=== PATIENT | male | born 1985 | race Hispanic/Latino ===

== ENCOUNTER 2016-08-10 01:09 | Emergency (ER) | payer OTHER ==
[2016-08-10] MEDS ORDERED: ONDANSETRON 4MG/2ML VIAL (J2405) As Ordered ONE (02:20)
[2016-08-10 02:24] LABS: EOS # 0.1 K/mm3 (0.0-0.50); EOS % 0.5 % (0.0-3.0); LARGE UNSTAINED CELL # 0.1 K/mm3 (0.0-0.4); LARGE UNSTAINED CELL % 0.6 % (0.0-4.0); LYMPH # 0.8 K/mm3 (1.5-4.5); LYMPH % 6.7 % (24.0-44.0); MEAN CORPUSCULAR HEMOGLOBIN 30.3 pg (27.0-33.0); MEAN CORPUSCULAR HGB CONC 34.1 g/dl (32.0-36.5); MEAN CORPUSCULAR VOLUME 88.8 fl (80.0-96.0); MONO # 0.4 K/mm3 (0.0-0.8); MONO % 3.4 % (0.0-5.0); NEUTROPHILS # 10.4 K/mm3 (1.8-7.7); NEUTROPHILS % 88.8 % (36.0-66.0); PLATELET COUNT, AUTOMATED 209 k/mm3 (150-450); RED CELL DISTRIBUTION WIDTH 12.2 % (11.5-14.5); WHITE BLOOD COUNT 11.7 K/mm3 (4.0-10.0)
[2016-08-10 02:25] LABS: VENOUS BASE EXCESS 0.7 (-2.0-2.0); VENOUS O2 SATURATION 90.1 % (60.0-80.0); VENOUS PARTIAL PRESSURE CO2 18.8 mmHg (38.0-50.0); VENOUS PARTIAL PRESSURE O2 45.6 mmHg (30.0-50.0); VENOUS STANDARD HCO3 24.9 MEQ/L; VENOUS TOTAL CO2 19.5 MEQ/L (24.0-28.0)
[2016-08-10 02:42] LABS: ALBUMIN 4.6 GM/DL (3.2-5.2); ALBUMIN/GLOBULIN RATIO 1.53 (1.00-1.93); BILIRUBIN,DIRECT 0.3 MG/DL (0.0-0.2); BILIRUBIN,TOTAL 1.1 MG/DL (0.2-1.0); CALCIUM LEVEL 9.4 MG/DL (8.5-10.1); CREATININE FOR GFR 1.56 MG/DL (0.70-1.30); GLOMERULAR FILTRATION RATE 55.9 (>60); POTASSIUM SERUM 3.7 MEQ/L (3.5-5.1); TOTAL PROTEIN 7.6 GM/DL (6.4-8.2)
[2016-08-10] MEDS ORDERED: ISOVUE-370 76% 100ML VIAL (Q9967) As Ordered ONE (04:08)
[2016-08-10] MEDS ORDERED: ACETAMINOPHEN TAB 650MG DOSE (2X325MG) As Ordered ONE (04:19)
--- NOTE | 2016-08-10 04:40 | REPUSA ---
CLINICAL HISTORY: Abdominal pain. TECHNIQUE: Multiple axial, sagittal and coronal CT images were obtained through the abdomen and pelvi s after administration of intravenous contrast material. COMMENTS: Mild diffuse thickening of the wall of the colon. Fluid filled bowels. The liver is of uniform attenuation without mass or defect. There is no intra or extrahepatic biliary ductal dilatation. The spleen is normal. The gallbladder is within normal limits. The pancreas is of normal contour and attenuation characteristics. There is no evidence of adrenal mass. Both kidneys demonstrate prompt and equal nephrograms. The kidneys are normal in size, shape and conf iguration. There is no evidence of renal or ureteral mass. No renal or ureteral calculi are identifie d. There is no hydroureter or hydronephrosis. No evidence for appendicitis. There is no bowel wall thickening. No evidence for small or large almaz l obstruction. There is no evidence of abdominal ascites or lymphadenopathy. There is no evidence of intrinsic or extrinsic bladder mass. There is no pelvic ascites or lymphadeno destinee. Images of the lung bases show no evidence of pleural or parenchymal mass. There are no pleural effusi ons. The bony structures are free of lytic or blastic lesions. IMPRESSION: Enterocolitis. No perforation or abscess formation. Thank you for your kind referral of this patient.
--- NOTE | 2016-08-10 07:24 | EDDOCDS ---
Physician Documentation [facility] Name: Darwin Mei Age: 31 yrs Sex: Male : 1985 Arrival Date: 08/10/2016 Time: 01:09 Bed 12 Private MD: Disposition: 08/10/16 07:03 Discharged to Home/Self Care. Impression: Noninfective gastroenteritis and colitis, unspecified. - Condition is Stable. - Discharge Instructions: Food Choices to Help Relieve Diarrhea, Adult, Dehydration, Adult, Viral Gastroenteritis, Viral Gastroenteritis, [id number], Dehydration, Adult, [id number]. - Prescriptions for Zofran 4 mg Oral Tablet - take 1 tablet by ORAL route 4 times per day As needed; 10 tablet. - Medication Reconciliation, Local Pharmacy Hours form. - Follow up: Andrés Gray [facility]; When: 2 - 3 days; Reason: Continuance of care. - Problem is an acute exacerbation. - Symptoms have improved. Historical: - Allergies: No known drug Allergies; - Home Meds: 1. none - PMHx: none; - Social history: Smoking status: Patient states was never smoker of tobacco. Patient/guardian denies using alcohol, street drugs, No barriers to communication noted, The patient speaks fluent [place]. - Family history: Not pertinent. - : The pt / caregiver states he / she is not on anticoagulants. Home medication list is obtained from the patient. - Exposure Risk Screening:: None identified. Vital Signs: 08/10 01:18 BP 122 / 67; Pulse 104; Resp 18; Temp 97.5(O); Pulse Ox 100% on R/A; Weight 86.18 kg / jp6 189.99 lbs; Height 5 ft. 9 in. (175.26 cm); Pain 9/10; 02:33 Pulse 82 MON; Pulse Ox 94% ; jp6 02:33 BP 126 / 60; Pulse 82; Resp 16; Pulse Ox 97% on R/A; Pain 5/10; jp6 03:36 BP 113 / 58 (auto/); jp6 03:36 Pulse 82 MON; Pulse Ox 94% ; jp6 04:25 Temp 100.8(O); jp6 04:36 BP 121 / 66 (auto/); jp6 04:36 Pulse 84 MON; Pulse Ox 98% ; jp6 04:44 Pulse 78 MON; Pulse Ox 98% ; jp6 05:26 Pulse 80 MON; Pulse Ox 94% ; jp6 05:26 Temp 99.6(O); jp6 05:36 BP 114 / 54 (auto/); jp6 05:36 Pulse 78 MON; Pulse Ox 93% ; jp6 07:21 BP 108 / 52; Pulse 78; Resp 16; Temp 97.8; Pulse Ox 99% on R/A; Pain 2/10; dls 01:18 Body Mass Index 28.06 (86.18 kg, 175.26 cm) jp6 MDM: 01:26 NS 0.9% 1000 ml IV at bolus once ordered. js15 02:15 Ondansetron 4 mg IVP once ordered. mm11 02:15 -Blood Culture (Adults Only), peripheral from different site, or from device/port/PICC mm11 etc. if present ordered. 02:15 IV Saline Lock ordered. mm11 02:15 Undress patient appropriately for examination ordered. mm11 02:16 -Blood Culture Ordered. EDMS 02:16 Amylase Ordered. EDMS 02:16 Basic Metabolic Profile Ordered. EDMS 02:16 CBC with Diff Ordered. EDMS 02:16 Lipase Ordered. EDMS 02:16 Liver Profile Ordered. EDMS 02:17 NOTHING BY MOUTH+DIET ordered. EDMS 02:17 Venous Blood Gas (large pea green tube on ice) Ordered. EDMS 02:17 Lactic Acid (Garzon tube on ice) Ordered. EDMS 02:23 -Blood Culture (Adults Only), peripheral from different site, or from device/port/PICC kb5 etc. if present complete. 02:27 BLOOD CULTURES Ordered. EDMS 02:55 CREATINE PHOSPHOKINASE Ordered. EDMS 03:11 Financial registration complete. [facility] 03:16 Basic Metabolic Profile Reviewed. mm11 03:16 CBC with Diff Reviewed. mm11 03:16 Liver Profile Reviewed. mm11 03:16 Venous Blood Gas (large pea green tube on ice) Reviewed. mm11 03:16 Lactic Acid (Garzon tube on ice) Reviewed. mm11 03:16 CREATINE PHOSPHOKINASE Reviewed. mm11 03:16 Amylase Reviewed. mm11 03:16 Lipase Reviewed. mm11 03:17 NS 0.9% (Sepsis- hypotension or lactate >4mmol/L, 30ml/kg) 2000 ml IV at bolus once; mm11 Give in 500mL aliquots, assess for rales after each, inform provider ordered. 03:17 CT ABD & PELVIS: IV Contrast Only Ordered. EDVA 04:17 [facility] Payment Agreement was scanned into [employer] and attached to record. [facility] 04:18 Acetaminophen Tablet 650 mg PO once ordered. mm11 04:19 -Influenza A&B Rapid Antigen - Nose Ordered. EDMS 06:18 -Influenza A&B Rapid Antigen - Nose Reviewed. mm11 06:18 CT ABD & PELVIS: IV Contrast Only Reviewed. mm11 Administered Medications: 01:27 Drug: NS 0.9% 1000 ml [sodium chloride 0.9 % intravenous solution] Route: IV; Rate: js15 bolus; Site: left antecubital; 03:25 Follow up: IV Status: Completed infusion; IV Intake: 1000ml jp6 02:30 Drug: Ondansetron 4 mg [ondansetron HCl 2 mg/mL intravenous solution (2 mL)] Route: jp6 IVP; Site: left antecubital; 03:26 Follow up: Response: Nausea is resolved jp6 03:23 Drug: NS 0.9% (Sepsis- hypotension or lactate >4mmol/L, 30ml/kg) 2000 ml [sodium jp6 chloride 0.9 % intravenous solution] Route: IV; Rate: bolus; Site: left antecubital; 05:26 Follow up: IV Status: Completed infusion; IV Intake: 2000ml jp6 04:25 Drug: Acetaminophen 650 mg [acetaminophen 325 mg tablet (2 tabs)] Route: PO; jp6 05:26 Follow up: Response: Temperature is decreased jp6 Signatures: Dispatcher [employer] EDVA Anila Valle, Esteban Long RN, SUPERVISOR [employer] SUPERVISOR [employer] kb5 John Branham DO DO mm11 Makayla Tinsley [facility] Betty RendonRN SOTO js15 Livier Dugan,RN RN jp6 The chart was reviewed and I authenticate all verbal orders and agree with the evaluation and treatment provided.Corrections: (The following items were deleted from the chart) 02:55 02:48 CREATINE PHOSPHOKINASE+LAB ordered. EDVA EDMS Attachments: 04:17 [facility] Payment Agreement [facility] MTDD
--- NOTE | 2016-08-10 07:24 | EDDOCDS ---
Nurse's Notes [facility] Name: Darwin Mei Age: 31 yrs Sex: Male : 1985 Arrival Date: 08/10/2016 Time: 01:09 Bed 12 Private MD: Diagnosis: Noninfective gastroenteritis and colitis, unspecified Presentation: 08/10 01:15 Presenting complaint: Patient states: abdominal pain states: states ate steak and jp6 shrimp then became ill-other family members ate the same with no problems. EMS states: states 2 hrs ago pt started with severe abdominal cramping and some bloody stools,almost passed out on toilet. Risk factors: the patient reports not having a history of previous torsion. Adult Sepsis Screening: The patient does not have new or worsening altered mentation. Patient's respiratory rate is less than 22. Systolic blood pressure is greater than 100. Patient has a qSOFA score of 0- Negative Sepsis Screen. Suicide/Homicide risk assessment- the patient denies having any suicidal and/or homicidal ideations and does not present with any other emotional, behavioral or mental health complaints. 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 Transition of care: patient was not received from another setting of care. 01:15 Acuity: TIA Level 3 jp6 01:15 Method Of Arrival: Ambulance jp6 Triage Assessment: 01:18 General: Appears distressed, ill, uncomfortable, well developed, well nourished, jp6 Behavior is appropriate for age, cooperative. Pain: Location: abdomen Pain currently is 9 out of 10 on a pain scale. Pain radiates to epigastric and abdomen Quality of pain is described as crampy. Pt Declines HIV testing. The patient is triaged at the bedside. See Assessment in Nurses Notes section of ED record. Neurological: Level of Consciousness is awake, alert, Oriented to person, place, time. EENT: No deficits noted. Cardiovascular: Capillary refill < 3 seconds Heart tones S1 S2 present. Respiratory: Airway is patent Respiratory effort is even, unlabored, Respiratory pattern is regular, symmetrical, Breath sounds are clear bilaterally. GI: Abdomen is flat, Bowel sounds hypoactive in right upper quadrant, left upper quadrant, right lower quadrant and left lower quadrant Abd is tender to palpation X 4 quads. Abd is rigid Guarding noted. : No deficits noted. Derm: Skin is intact, Skin is dry, Skin is pale, Skin temperature is warm. Musculoskeletal: No deficits noted. Historical: - Allergies: No known drug Allergies; - Home Meds: 1. none - PMHx: none; - Social history: Smoking status: Patient states was never smoker of tobacco. Patient/guardian denies using alcohol, street drugs, No barriers to communication noted, The patient speaks fluent Sinhala. - Family history: Not pertinent. - : The pt / caregiver states he / she is not on anticoagulants. Home medication list is obtained from the patient. - Exposure Risk Screening:: None identified. Screenin:22 Screening information is obtained from the patient. Fall risk: No risks identified. jp6 Assistance ADL's: requires no assistance with activities of daily living. Abuse/DV Screen: The patient / caregiver reports he/she is: not in a situation that causes fear, pain or injury. Nutritional screening: No deficits noted. Advance Directives: Currently, there is no health care proxy. There is no active DNR order. There is no living will. home support is adequate. Assessment: 01:22 General: see triage assessment. jp6 02:34 Reassessment: Patient appears in no apparent distress at this time. Patient states jp6 symptoms have not improved. General: Appears in no apparent distress, ill, Behavior is appropriate for age, cooperative. Pain: Location: abdomen Pain currently is 5 out of 10 on a pain scale. Neurological: No deficits noted. EENT: No deficits noted. Cardiovascular: No deficits noted. Respiratory: Airway is patent Respiratory effort is even, unlabored, Respiratory pattern is regular, symmetrical. GI: Abdomen is flat, non- distended. : No deficits noted. Derm: Skin is dry, Skin is pale, Skin temperature is warm. 03:24 Reassessment: Patient appears in no apparent distress at this time. Patient states jp6 symptoms have improved. Pain: Denies pain. Respiratory: Airway is patent Respiratory effort is even, unlabored, Respiratory pattern is regular, symmetrical. GI: Reports feeling better. Derm: Skin is pink, warm & dry. 04:44 Reassessment: Patient appears in no apparent distress at this time. Patient denies pain jp6 at this time. Patient states feeling better. General: Appears in no apparent distress, comfortable, Behavior is appropriate for age, cooperative, pleasant. Pain: Denies pain. Pain: Denies pain. Neurological: No deficits noted. EENT: No deficits noted. Cardiovascular: No deficits noted. Respiratory: Airway is patent Respiratory effort is even, unlabored, Respiratory pattern is regular, symmetrical, Breath sounds are clear bilaterally. GI: Abdomen is flat, non- distended Reports feeling better at this time. : No deficits noted. Derm: Skin is pink, warm & dry. Musculoskeletal: No deficits noted. 05:27 Reassessment: Patient appears in no apparent distress at this time. Patient states jp6 symptoms have improved. General: Appears comfortable. Pain: Denies pain. Neurological: No deficits noted. EENT: No deficits noted. Cardiovascular: No deficits noted. Respiratory: Airway is patent Respiratory effort is even, unlabored, Respiratory pattern is regular, symmetrical. GI: Abdomen is flat, non- distended. : No deficits noted. Derm: No deficits noted. Musculoskeletal: No deficits noted. 06:23 Reassessment: Patient appears in no apparent distress at this time. Patient states jp6 symptoms have improved. General: Appears in no apparent distress, comfortable, Behavior is cooperative. Respiratory: Airway is patent Respiratory effort is even, unlabored, Respiratory pattern is regular, symmetrical, Sputum is. GI: Reports feeling much better. Derm: Skin is pink, warm & dry. Vital Signs: 01:18 BP 122 / 67; Pulse 104; Resp 18; Temp 97.5(O); Pulse Ox 100% on R/A; Weight 86.18 kg; jp6 Height 5 ft. 9 in. (175.26 cm); Pain 9/10; 02:33 Pulse 82 MON; Pulse Ox 94% ; jp6 02:33 BP 126 / 60; Pulse 82; Resp 16; Pulse Ox 97% on R/A; Pain 5/10; jp6 03:36 BP 113 / 58 (auto/); jp6 03:36 Pulse 82 MON; Pulse Ox 94% ; jp6 04:25 Temp 100.8(O); jp6 04:36 BP 121 / 66 (auto/); jp6 04:36 Pulse 84 MON; Pulse Ox 98% ; jp6 04:44 Pulse 78 MON; Pulse Ox 98% ; jp6 05:26 Pulse 80 MON; Pulse Ox 94% ; jp6 05:26 Temp 99.6(O); jp6 05:36 BP 114 / 54 (auto/); jp6 05:36 Pulse 78 MON; Pulse Ox 93% ; jp6 07:21 BP 108 / 52; Pulse 78; Resp 16; Temp 97.8; Pulse Ox 99% on R/A; Pain 2/10; dls 01:18 Body Mass Index 28.06 (86.18 kg, 175.26 cm) jp6 Vitals: 01:18 Log In Time N/A - ambulance arrival. jp6 ED Course: 01:10 Patient visited by Esteban Calderon PCA. kb5 01:10 Patient moved to Waiting kb5 01:12 Patient moved to 12 kb5 01:13 Patient name changed from Darwin\S\\S\Zambranagonzalez\S\ to Darwin\S\ \S\Mansoorranjenszalez. EDMS 01:15 Livier Dugan,RN is Primary Nurse. jp6 01:15 Patient visited by Livier Dugan RN. jp6 01:18 Triage Initiated jp6 01:22 Maintain field IV. Dressing intact. Good blood return noted. Site clean & dry. Gauge & jp6 site: 18g left ac. 01:44 John Branham DO is Attending Physician. mm11 01:44 Patient visited by John Branham DO. mm11 02:14 Patient visited by John Branham DO. mm11 02:30 BLOOD CULTURES Sent. jp6 02:33 The patient / caregiver is instructed regarding the plan of care and ED course. Cardiac jp6 monitor on. Pulse ox on. NIBP on. 02:33 No procedures done that require assistance. Labs/Blood culture drawn. jp6 02:48 Notified attending ED physician of Critical lab value. sls1 03:16 Patient visited by John Branham DO. mm11 04:17 [facility] Payment Agreement was scanned into Apptimize and attached to record. [facility] 04:24 Patient visited by Livier Dugan RN. jp6 04:24 -Influenza A&B Rapid Antigen - Nose Sent. jp6 05:02 CT ABD & PELVIS: IV Contrast Only Returned. EDMS 05:26 Patient visited by Livier Dugan RN. jp6 06:18 Patient visited by John Branham DO. mm11 07:02 Patient visited by John Branham DO. mm11 07:03 Andrés Gray [facility] is Referral Physician. mm11 07:20 Report received from Livier VALERA. dls 07:21 Discontinued IV lock intact, bleeding controlled, pressure dressing applied, No dls redness/swelling at site. Administered Medications: 01:27 Drug: NS 0.9% 1000 ml [sodium chloride 0.9 % intravenous solution] Route: IV; Rate: js15 bolus; Site: left antecubital; 03:25 Follow up: IV Status: Completed infusion; IV Intake: 1000ml jp6 02:30 Drug: Ondansetron 4 mg [ondansetron HCl 2 mg/mL intravenous solution (2 mL)] Route: jp6 IVP; Site: left antecubital; 03:26 Follow up: Response: Nausea is resolved jp6 03:23 Drug: NS 0.9% (Sepsis- hypotension or lactate >4mmol/L, 30ml/kg) 2000 ml [sodium jp6 chloride 0.9 % intravenous solution] Route: IV; Rate: bolus; Site: left antecubital; 05:26 Follow up: IV Status: Completed infusion; IV Intake: 2000ml jp6 04:25 Drug: Acetaminophen 650 mg [acetaminophen 325 mg tablet (2 tabs)] Route: PO; jp6 05:26 Follow up: Response: Temperature is decreased jp6 Intake: 03:25 IV: 1000.00ml; Total: 1000.00ml. jp6 04:44 IV: 2000.00ml; Total: 3000.00ml. jp6 05:26 IV: 2000.00ml; Total: 5000.00ml. jp6 Output: 04:44 Urine: 350.00ml (Voided); Total: 350.00ml. jp6 Order Results: Lab Order: Amylase; SPEC'M 08/10/16 01:23 Test: AMYLASE; Value: 86; Range: 25-115; Units: U/L; Status: F Lab Order: Basic Metabolic Profile; SPEC'M 08/10/16 01:23 Test: GLUCOSE, FASTING; Value: 134; Range: 70-105; Abnormal: Above high normal; Units: MG/DL; Status: F Test: BLOOD UREA NITROGEN; Value: 22; Range: 7-18; Abnormal: Above high normal; Units: MG/DL; Status: F Test: CREATININE FOR GFR; Value: 1.56; Range: 0.70-1.30; Abnormal: Above high normal; Units: MG/DL; Status: F Test: GLOMERULAR FILTRATION RATE; Value: 55.9; Range: >60; Abnormal: Below low normal; Status: F Test: SODIUM LEVEL; Value: 141; Range: 136-145; Units: MEQ/L; Status: F Test: POTASSIUM SERUM; Value: 3.7; Range: 3.5-5.1; Units: MEQ/L; Status: F Test: CHLORIDE LEVEL; Value: 105; Range: 98-107; Units: MEQ/L; Status: F Test: CARBON DIOXIDE LEVEL; Value: 20; Range: 21-32; Abnormal: Below low normal; Units: MEQ/L; Status: F Test: ANION GAP; Value: 16; Range: 8-16; Units: MEQ/L; Status: F Test: CALCIUM LEVEL; Value: 9.4; Range: 8.5-10.1; Units: MG/DL; Status: F Test Note: ; Units are mL/min/1.73 m2 Chronic Kidney Disease Staging per NKF: Stage I & II GFR >=60 Normal to Mildly Decreased Stage III GFR 30-59 Moderately Decreased Stage IV GFR 15-29 Severely Decreased Stage V GFR <15 Very Little GFR Left ESRD GFR <15 on DIRECTOR OF CURRICULUM Lab Order: CBC with Diff; SPEC'M 08/10/16 01:23 Test: WHITE BLOOD COUNT; Value: 11.7; Range: 4.0-10.0; Abnormal: Above high normal; Units: K/mm3; Status: F Test: RED BLOOD COUNT; Value: 5.02; Range: 4.30-6.10; Units: M/mm3; Status: F Test: HEMOGLOBIN; Value: 15.2; Range: 14.0-18.0; Units: g/dl; Status: F Test: HEMATOCRIT; Value: 44.6; Range: 42.0-52.0; Units: %; Status: F Test: MEAN CORPUSCULAR VOLUME; Value: 88.8; Range: 80.0-96.0; Units: fl; Status: F Test: MEAN CORPUSCULAR HEMOGLOBIN; Value: 30.3; Range: 27.0-33.0; Units: pg; Status: F Test: MEAN CORPUSCULAR HGB CONC; Value: 34.1; Range: 32.0-36.5; Units: g/dl; Status: F Test: RED CELL DISTRIBUTION WIDTH; Value: 12.2; Range: 11.5-14.5; Units: %; Status: F Test: PLATELET COUNT, AUTOMATED; Value: 209; Range: 150-450; Units: k/mm3; Status: F Test: NEUTROPHILS %; Value: 88.8; Range: 36.0-66.0; Abnormal: Above high normal; Units: %; Status: F Test: LYMPH %; Value: 6.7; Range: 24.0-44.0; Abnormal: Below low normal; Units: %; Status: F Test: MONO %; Value: 3.4; Range: 0.0-5.0; Units: %; Status: F Test: EOS %; Value: 0.5; Range: 0.0-3.0; Units: %; Status: F Test: BASO %; Value: 0.0; Range: 0.0-1.0; Units: %; Status: F Test: LARGE UNSTAINED CELL %; Value: 0.6; Range: 0.0-4.0; Units: %; Status: F Test: NEUTROPHILS #; Value: 10.4; Range: 1.8-7.7; Abnormal: Above high normal; Units: K/mm3; Status: F Test: LYMPH #; Value: 0.8; Range: 1.5-4.5; Abnormal: Below low normal; Units: K/mm3; Status: F Test: MONO #; Value: 0.4; Range: 0.0-0.8; Units: K/mm3; Status: F Test: EOS #; Value: 0.1; Range: 0.0-0.50; Units: K/mm3; Status: F Test: BASO #; Value: 0.0; Range: 0.0-0.2; Units: K/mm3; Status: F Test: LARGE UNSTAINED CELL #; Value: 0.1; Range: 0.0-0.4; Units: K/mm3; Status: F Lab Order: Lipase; SPEC'M 08/10/16 01:23 Test: LIPASE; Value: 144; Range: 73-393; Units: U/L; Status: F Lab Order: Liver Profile; SPEC'M 08/10/16 01:23 Test: AST/SGOT; Value: 33; Range: 15-37; Units: U/L; Status: F Test: ALT/SGPT; Value: 34; Range: 12-78; Units: U/L; Status: F Test: ALKALINE PHOSPHATASE; Value: 65; Range: 45-117; Units: U/L; Status: F Test: BILIRUBIN,TOTAL; Value: 1.1; Range: 0.2-1.0; Abnormal: Above high normal; Units: MG/DL; Status: F Test: BILIRUBIN,DIRECT; Value: 0.3; Range: 0.0-0.2; Abnormal: Above high normal; Units: MG/DL; Status: F Test: TOTAL PROTEIN; Value: 7.6; Range: 6.4-8.2; Units: GM/DL; Status: F Test: ALBUMIN; Value: 4.6; Range: 3.2-5.2; Units: GM/DL; Status: F Test: ALBUMIN/GLOBULIN RATIO; Value: 1.53; Range: 1.00-1.93; Status: F Lab Order: Venous Blood Gas (large pea green tube on ice); SPEC'M 08/10/16 01:23 Test: VENOUS PH; Value: 7.621; Range: 7.330-7.430; Abnormal: Above upper panic limits; Units: UNITS; Status: F Test: VENOUS PARTIAL PRESSURE CO2; Value: 18.8; Range: 38.0-50.0; Abnormal: Below low normal; Units: mmHg; Status: F Test: VENOUS PARTIAL PRESSURE O2; Value: 45.6; Range: 30.0-50.0; Units: mmHg; Status: F Test: VENOUS TOTAL CO2; Value: 19.5; Range: 24.0-28.0; Abnormal: Below low normal; Units: MEQ/L; Status: F Test: VENOUS HCO3; Value: 18.9; Range: 23.0-27.0; Abnormal: Below low normal; Units: MEQ/L; Status: F Test: VENOUS BASE EXCESS; Value: 0.7; Range: -2.0-2.0; Status: F Test: VENOUS STANDARD HCO3; Value: 24.9; Units: MEQ/L; Status: F Test: VENOUS O2 SATURATION; Value: 90.1; Range: 60.0-80.0; Abnormal: Above high normal; Units: %; Status: F Test Note: ; Verified Repeated results: 7.618 Lab Order: Lactic Acid (Garzon tube on ice); SPEC'M 08/10/16 01:23 Test: LACTIC ACID LEVEL, LACTATE; Value: 2.8; Range: 0.4-2.0; Abnormal: Above upper panic limits; Units: MMOL/L; Status: F Lab Order: CREATINE PHOSPHOKINASE; SPEC'M 08/10/16 01:23 Test: CPK CREATINE PHOSPHOKINASE; Value: 745; Range: 39-308; Abnormal: Above high normal; Units: U/L; Status: F Lab Order: -Influenza A&B Rapid Antigen - Nose; SPEC'M 08/10/16 04:24 Test: INFLUENZA A RAPID SCR by ICA; Value: INFLUENZA A RESULTS NEGATIVE; Status: F Test: INFLUENZA A RAPID SCR by ICA; Value: Comments:; Status: F Test: INFLUENZA B RAPID SCR by ICA; Value: INFLUENZA B RESULTS NEGATIVE; Status: F Test Note: ; The Influenza test is a direct rapid immunoassay for the qualitative detection of Influenza viral antigen. Cell culture (Viral Culture) testing should be considered to confirm NEGATIVE results and to assist in detecting other viruses that can provide similar clinical symptoms. Please contact the lab within 24 hours ([phone] if confirmatory testing is desired. Radiology Order: CT ABD & PELVIS: IV Contrast Only Test: CT ABD & PELVIS: IV Contrast Only REASON FOR EXAMINATION: Abdomen Pain; ; CLINICAL HISTORY: Abdominal pain.; TECHNIQUE: Multiple axial, sagittal and coronal CT images were obtained through the abdomen and pelvi; s after administration of intravenous contrast material.; COMMENTS:; Mild diffuse thickening of the wall of the colon.; Fluid filled bowels.; The liver is of uniform attenuation without mass or defect. There is no intra or extrahepatic biliary; ductal dilatation. The spleen is normal. The gallbladder is within normal limits. The pancreas is of; normal contour and attenuation characteristics. There is no evidence of adrenal mass.; Both kidneys demonstrate prompt and equal nephrograms. The kidneys are normal in size, shape and conf; iguration. There is no evidence of renal or ureteral mass. No renal or ureteral calculi are identifie; d. There is no hydroureter or hydronephrosis.; No evidence for appendicitis. There is no bowel wall thickening. No evidence for small or large almaz; l obstruction. There is no evidence of abdominal ascites or lymphadenopathy.; There is no evidence of intrinsic or extrinsic bladder mass. There is no pelvic ascites or lymphadeno; destinee.; Images of the lung bases show no evidence of pleural or parenchymal mass. There are no pleural effusi; ons.; The bony structures are free of lytic or blastic lesions.; IMPRESSION:; Enterocolitis.; No perforation or abscess formation.; Thank you for your kind referral of this patient.; ; Outcome: 07:03 Discharge ordered by Provider. mm11 07:22 Discharge Assessment: Patient awake, alert and oriented x 3. No cognitive and/or dls functional deficits noted. Patient verbalized understanding of disposition instructions. patient administered narcotics - no. The following High Risk Discharge criteria are identified: None. Discharged to home ambulatory, with significant other. Condition: stable Condition: improved. Discharge instructions given to patient, Instructed on discharge instructions, follow up and referral plans. medication usage, Demonstrated understanding of instructions, medications, Pt was receptive of discharge instructions/ teaching. No special radiology studies were completed. Property sent home with patient. 07:23 Patient left the ED. dls Signatures: Dispatcher [employer] EDMS Anila Valle, SOTO RN dls Esteban Calderon, ASSEMBLER [employer] PIPES ASSEMBLER [employer] kb5 John Branham, DO mm11 Amarilis Dorantes RN RN [email or web address] Makayla Tinsley Julia,RN RN js15 Livier Dugan,RN RN jp6 [facility]
--- NOTE | 2016-08-12 08:24 | EDDOCDS ---
Physician Documentation [facility] Name: Darwin Mei Age: 31 yrs Sex: Male : 1985 Arrival Date: 08/10/2016 Time: 01:09 Bed 12 Private MD: Disposition: 08/10/16 07:03 Discharged to Home/Self Care. Impression: Noninfective gastroenteritis and colitis, unspecified. - Condition is Stable. - Discharge Instructions: Food Choices to Help Relieve Diarrhea, Adult, Dehydration, Adult, Viral Gastroenteritis, Viral Gastroenteritis, [id number], Dehydration, Adult, [id number]. - Prescriptions for Zofran 4 mg Oral Tablet - take 1 tablet by ORAL route 4 times per day As needed; 10 tablet. - Medication Reconciliation, Local Pharmacy Hours form. - Follow up: Andrés Gray [facility]; When: 2 - 3 days; Reason: Continuance of care. - Problem is an acute exacerbation. - Symptoms have improved. Historical: - Allergies: No known drug Allergies; - Home Meds: 1. none - PMHx: none; - Social history: Smoking status: Patient states was never smoker of tobacco. Patient/guardian denies using alcohol, street drugs, No barriers to communication noted, The patient speaks fluent [place] Islander. - Family history: Not pertinent. - : The pt / caregiver states he / she is not on anticoagulants. Home medication list is obtained from the patient. - Exposure Risk Screening:: None identified. Vital Signs: 08/10 01:18 BP 122 / 67; Pulse 104; Resp 18; Temp 97.5(O); Pulse Ox 100% on R/A; Weight 86.18 kg / jp6 189.99 lbs; Height 5 ft. 9 in. (175.26 cm); Pain 9/10; 02:33 Pulse 82 MON; Pulse Ox 94% ; jp6 02:33 BP 126 / 60; Pulse 82; Resp 16; Pulse Ox 97% on R/A; Pain 5/10; jp6 03:36 BP 113 / 58 (auto/); jp6 03:36 Pulse 82 MON; Pulse Ox 94% ; jp6 04:25 Temp 100.8(O); jp6 04:36 BP 121 / 66 (auto/); jp6 04:36 Pulse 84 MON; Pulse Ox 98% ; jp6 04:44 Pulse 78 MON; Pulse Ox 98% ; jp6 05:26 Pulse 80 MON; Pulse Ox 94% ; jp6 05:26 Temp 99.6(O); jp6 05:36 BP 114 / 54 (auto/); jp6 05:36 Pulse 78 MON; Pulse Ox 93% ; jp6 07:21 BP 108 / 52; Pulse 78; Resp 16; Temp 97.8; Pulse Ox 99% on R/A; Pain 2/10; dls 01:18 Body Mass Index 28.06 (86.18 kg, 175.26 cm) jp6 MDM: 01:26 NS 0.9% 1000 ml IV at bolus once ordered. js15 02:15 Ondansetron 4 mg IVP once ordered. mm11 02:15 -Blood Culture (Adults Only), peripheral from different site, or from device/port/PICC mm11 etc. if present ordered. 02:15 IV Saline Lock ordered. mm11 02:15 Undress patient appropriately for examination ordered. mm11 02:16 -Blood Culture Ordered. EDMS 02:16 Amylase Ordered. EDMS 02:16 Basic Metabolic Profile Ordered. EDMS 02:16 CBC with Diff Ordered. EDMS 02:16 Lipase Ordered. EDMS 02:16 Liver Profile Ordered. EDMS 02:17 NOTHING BY MOUTH+DIET ordered. EDMS 02:17 Venous Blood Gas (large pea green tube on ice) Ordered. EDMS 02:17 Lactic Acid (Garzon tube on ice) Ordered. EDMS 02:23 -Blood Culture (Adults Only), peripheral from different site, or from device/port/PICC kb5 etc. if present complete. 02:27 BLOOD CULTURES Ordered. EDMS 02:55 CREATINE PHOSPHOKINASE Ordered. EDMS 03:11 Financial registration complete. [facility] 03:16 Basic Metabolic Profile Reviewed. mm11 03:16 CBC with Diff Reviewed. mm11 03:16 Liver Profile Reviewed. mm11 03:16 Venous Blood Gas (large pea green tube on ice) Reviewed. mm11 03:16 Lactic Acid (Garzon tube on ice) Reviewed. mm11 03:16 CREATINE PHOSPHOKINASE Reviewed. mm11 03:16 Amylase Reviewed. mm11 03:16 Lipase Reviewed. mm11 03:17 NS 0.9% (Sepsis- hypotension or lactate >4mmol/L, 30ml/kg) 2000 ml IV at bolus once; mm11 Give in 500mL aliquots, assess for rales after each, inform provider ordered. 03:17 CT ABD & PELVIS: IV Contrast Only Ordered. EDMS 04:17 [facility] Payment Agreement was scanned into [employer] and attached to record. [facility] 04:18 Acetaminophen Tablet 650 mg PO once ordered. mm11 04:19 -Influenza A&B Rapid Antigen - Nose Ordered. EDMS 06:18 -Influenza A&B Rapid Antigen - Nose Reviewed. mm11 06:18 CT ABD & PELVIS: IV Contrast Only Reviewed. mm11 15:00 T-Sheet-- Draft Copy was scanned into [employer] and attached to record. gb 15:00 Radiology Report was scanned into [employer] and attached to record. gb Administered Medications: 01:27 Drug: NS 0.9% 1000 ml [sodium chloride 0.9 % intravenous solution] Route: IV; Rate: js15 bolus; Site: left antecubital; 03:25 Follow up: IV Status: Completed infusion; IV Intake: 1000ml jp6 02:30 Drug: Ondansetron 4 mg [ondansetron HCl 2 mg/mL intravenous solution (2 mL)] Route: jp6 IVP; Site: left antecubital; 03:26 Follow up: Response: Nausea is resolved jp6 03:23 Drug: NS 0.9% (Sepsis- hypotension or lactate >4mmol/L, 30ml/kg) 2000 ml [sodium jp6 chloride 0.9 % intravenous solution] Route: IV; Rate: bolus; Site: left antecubital; 05:26 Follow up: IV Status: Completed infusion; IV Intake: 2000ml jp6 04:25 Drug: Acetaminophen 650 mg [acetaminophen 325 mg tablet (2 tabs)] Route: PO; jp6 05:26 Follow up: Response: Temperature is decreased jp6 Signatures: Dispatcher [employer] EDMS Anila Valle, RN RN dls Guerita Pulido, Reg Reg gb Esteban Calderon, AUTOMATIC LUMP MAKING MACHINE TENDER AUTOMATIC LUMP MAKING MACHINE TENDER kb5 John Branham, DO mm11 Makayla Tinsley [facility] Betty RendonRN RN js15 Livier Dugna,RN RN jp6 The chart was reviewed and I authenticate all verbal orders and agree with the evaluation and treatment provided.Corrections: (The following items were deleted from the chart) 02:55 02:48 CREATINE PHOSPHOKINASE+LAB ordered. EDMS EDMS Attachments: 04:17 [facility] Payment Agreement [facility] 15:00 T-Sheet-- Draft Copy gb Chart Complete MTDD
--- NOTE | 2016-08-12 08:24 | EDDOCDS ---
Nurse's Notes [facility] Name: Darwin Mei Age: 31 yrs Sex: Male : 1985 Arrival Date: 08/10/2016 Time: 01:09 Bed 12 Private MD: Diagnosis: Noninfective gastroenteritis and colitis, unspecified Presentation: 08/10 01:15 Presenting complaint: Patient states: abdominal pain states: states ate steak and jp6 shrimp then became ill-other family members ate the same with no problems. EMS states: states 2 hrs ago pt started with severe abdominal cramping and some bloody stools,almost passed out on toilet. Risk factors: the patient reports not having a history of previous torsion. Adult Sepsis Screening: The patient does not have new or worsening altered mentation. Patient's respiratory rate is less than 22. Systolic blood pressure is greater than 100. Patient has a qSOFA score of 0- Negative Sepsis Screen. Suicide/Homicide risk assessment- the patient denies having any suicidal and/or homicidal ideations and does not present with any other emotional, behavioral or mental health complaints. Status: The patient is an active duty marketing services coordinator. Transition of care: patient was not received from another setting of care. 01:15 Acuity: TIA Level 3 jp6 01:15 Method Of Arrival: Ambulance jp6 Triage Assessment: 01:18 General: Appears distressed, ill, uncomfortable, well developed, well nourished, jp6 Behavior is appropriate for age, cooperative. Pain: Location: abdomen Pain currently is 9 out of 10 on a pain scale. Pain radiates to epigastric and abdomen Quality of pain is described as crampy. Pt Declines HIV testing. The patient is triaged at the bedside. See Assessment in Nurses Notes section of ED record. Neurological: Level of Consciousness is awake, alert, Oriented to person, place, time. EENT: No deficits noted. Cardiovascular: Capillary refill < 3 seconds Heart tones S1 S2 present. Respiratory: Airway is patent Respiratory effort is even, unlabored, Respiratory pattern is regular, symmetrical, Breath sounds are clear bilaterally. GI: Abdomen is flat, Bowel sounds hypoactive in right upper quadrant, left upper quadrant, right lower quadrant and left lower quadrant Abd is tender to palpation X 4 quads. Abd is rigid Guarding noted. : No deficits noted. Derm: Skin is intact, Skin is dry, Skin is pale, Skin temperature is warm. Musculoskeletal: No deficits noted. Historical: - Allergies: No known drug Allergies; - Home Meds: 1. none - PMHx: none; - Social history: Smoking status: Patient states was never smoker of tobacco. Patient/guardian denies using alcohol, street drugs, No barriers to communication noted, The patient speaks fluent [place]. - Family history: Not pertinent. - : The pt / caregiver states he / she is not on anticoagulants. Home medication list is obtained from the patient. - Exposure Risk Screening:: None identified. Screenin:22 Screening information is obtained from the patient. Fall risk: No risks identified. jp6 Assistance ADL's: requires no assistance with activities of daily living. Abuse/DV Screen: The patient / caregiver reports he/she is: not in a situation that causes fear, pain or injury. Nutritional screening: No deficits noted. Advance Directives: Currently, there is no health care proxy. There is no active DNR order. There is no living will. home support is adequate. Assessment: 01:22 General: see triage assessment. jp6 02:34 Reassessment: Patient appears in no apparent distress at this time. Patient states jp6 symptoms have not improved. General: Appears in no apparent distress, ill, Behavior is appropriate for age, cooperative. Pain: Location: abdomen Pain currently is 5 out of 10 on a pain scale. Neurological: No deficits noted. EENT: No deficits noted. Cardiovascular: No deficits noted. Respiratory: Airway is patent Respiratory effort is even, unlabored, Respiratory pattern is regular, symmetrical. GI: Abdomen is flat, non- distended. : No deficits noted. Derm: Skin is dry, Skin is pale, Skin temperature is warm. 03:24 Reassessment: Patient appears in no apparent distress at this time. Patient states jp6 symptoms have improved. Pain: Denies pain. Respiratory: Airway is patent Respiratory effort is even, unlabored, Respiratory pattern is regular, symmetrical. GI: Reports feeling better. Derm: Skin is pink, warm & dry. 04:44 Reassessment: Patient appears in no apparent distress at this time. Patient denies pain jp6 at this time. Patient states feeling better. General: Appears in no apparent distress, comfortable, Behavior is appropriate for age, cooperative, pleasant. Pain: Denies pain. Pain: Denies pain. Neurological: No deficits noted. EENT: No deficits noted. Cardiovascular: No deficits noted. Respiratory: Airway is patent Respiratory effort is even, unlabored, Respiratory pattern is regular, symmetrical, Breath sounds are clear bilaterally. GI: Abdomen is flat, non- distended Reports feeling better at this time. : No deficits noted. Derm: Skin is pink, warm & dry. Musculoskeletal: No deficits noted. 05:27 Reassessment: Patient appears in no apparent distress at this time. Patient states jp6 symptoms have improved. General: Appears comfortable. Pain: Denies pain. Neurological: No deficits noted. EENT: No deficits noted. Cardiovascular: No deficits noted. Respiratory: Airway is patent Respiratory effort is even, unlabored, Respiratory pattern is regular, symmetrical. GI: Abdomen is flat, non- distended. : No deficits noted. Derm: No deficits noted. Musculoskeletal: No deficits noted. 06:23 Reassessment: Patient appears in no apparent distress at this time. Patient states jp6 symptoms have improved. General: Appears in no apparent distress, comfortable, Behavior is cooperative. Respiratory: Airway is patent Respiratory effort is even, unlabored, Respiratory pattern is regular, symmetrical, Sputum is. GI: Reports feeling much better. Derm: Skin is pink, warm & dry. Vital Signs: 01:18 BP 122 / 67; Pulse 104; Resp 18; Temp 97.5(O); Pulse Ox 100% on R/A; Weight 86.18 kg; jp6 Height 5 ft. 9 in. (175.26 cm); Pain 9/10; 02:33 Pulse 82 MON; Pulse Ox 94% ; jp6 02:33 BP 126 / 60; Pulse 82; Resp 16; Pulse Ox 97% on R/A; Pain 5/10; jp6 03:36 BP 113 / 58 (auto/); jp6 03:36 Pulse 82 MON; Pulse Ox 94% ; jp6 04:25 Temp 100.8(O); jp6 04:36 BP 121 / 66 (auto/); jp6 04:36 Pulse 84 MON; Pulse Ox 98% ; jp6 04:44 Pulse 78 MON; Pulse Ox 98% ; jp6 05:26 Pulse 80 MON; Pulse Ox 94% ; jp6 05:26 Temp 99.6(O); jp6 05:36 BP 114 / 54 (auto/); jp6 05:36 Pulse 78 MON; Pulse Ox 93% ; jp6 07:21 BP 108 / 52; Pulse 78; Resp 16; Temp 97.8; Pulse Ox 99% on R/A; Pain 2/10; dls 01:18 Body Mass Index 28.06 (86.18 kg, 175.26 cm) jp6 Vitals: 01:18 Log In Time N/A - ambulance arrival. jp6 ED Course: 01:10 Patient visited by Esteban Calderon PCA. kb5 01:10 Patient moved to Waiting kb5 01:12 Patient moved to 12 kb5 01:13 Patient name changed from Darwin\S\\S\Zambranagonzalez\S\ to Darwin\S\ \S\Mansoorranjenszalez. EDMS 01:15 Livier Dugan,RN is Primary Nurse. jp6 01:15 Patient visited by Livier Dugan RN. jp6 01:18 Triage Initiated jp6 01:22 Maintain field IV. Dressing intact. Good blood return noted. Site clean & dry. Gauge & jp6 site: 18g left ac. 01:44 John Branham DO is Attending Physician. mm11 01:44 Patient visited by John Branham DO. mm11 02:14 Patient visited by John Branham DO. mm11 02:30 BLOOD CULTURES Sent. jp6 02:33 The patient / caregiver is instructed regarding the plan of care and ED course. Cardiac jp6 monitor on. Pulse ox on. NIBP on. 02:33 No procedures done that require assistance. Labs/Blood culture drawn. jp6 02:48 Notified attending ED physician of Critical lab value. sls1 03:16 Patient visited by John Branham DO. mm11 04:17 [facility] Payment Agreement was scanned into Qwbcg and attached to record. [facility] 04:24 Patient visited by Livier Dugan RN. jp6 04:24 -Influenza A&B Rapid Antigen - Nose Sent. jp6 05:02 CT ABD & PELVIS: IV Contrast Only Returned. EDMS 05:26 Patient visited by Livier Dugan RN. jp6 06:18 Patient visited by John Branham DO. mm11 07:02 Patient visited by John Branham DO. mm11 07:03 Andrés Gray [facility] is Referral Physician. mm11 07:20 Report received from Livier VALERA. dls 07:21 Discontinued IV lock intact, bleeding controlled, pressure dressing applied, No dls redness/swelling at site. 15:00 T-Sheet-- Draft Copy was scanned into Qwbcg and attached to record. gb 15:00 Radiology Report was scanned into Qwbcg and attached to record. gb Administered Medications: 01:27 Drug: NS 0.9% 1000 ml [sodium chloride 0.9 % intravenous solution] Route: IV; Rate: js15 bolus; Site: left antecubital; 03:25 Follow up: IV Status: Completed infusion; IV Intake: 1000ml jp6 02:30 Drug: Ondansetron 4 mg [ondansetron HCl 2 mg/mL intravenous solution (2 mL)] Route: jp6 IVP; Site: left antecubital; 03:26 Follow up: Response: Nausea is resolved jp6 03:23 Drug: NS 0.9% (Sepsis- hypotension or lactate >4mmol/L, 30ml/kg) 2000 ml [sodium jp6 chloride 0.9 % intravenous solution] Route: IV; Rate: bolus; Site: left antecubital; 05:26 Follow up: IV Status: Completed infusion; IV Intake: 2000ml jp6 04:25 Drug: Acetaminophen 650 mg [acetaminophen 325 mg tablet (2 tabs)] Route: PO; jp6 05:26 Follow up: Response: Temperature is decreased jp6 Intake: 03:25 IV: 1000.00ml; Total: 1000.00ml. jp6 04:44 IV: 2000.00ml; Total: 3000.00ml. jp6 05:26 IV: 2000.00ml; Total: 5000.00ml. jp6 Output: 04:44 Urine: 350.00ml (Voided); Total: 350.00ml. jp6 Order Results: Lab Order: -Blood Culture; SPEC'M 08/10/16 01:23 Test: BLOOD CULTURE; Value: No growth after 24 hours . All specimens observed; Status: F Test: BLOOD CULTURE; Value: for 5 days. Results final at that time.; Status: F Test: BLOOD CULTURE; Value: No Growth after 48 hours. All Specimens observed; Status: F Test: BLOOD CULTURE; Value: for 7 days. Results final at that time.; Status: F Lab Order: Amylase; SPEC'M 08/10/16 01:23 Test: AMYLASE; Value: 86; Range: 25-115; Units: U/L; Status: F Lab Order: Basic Metabolic Profile; SPEC'M 08/10/16 01:23 Test: GLUCOSE, FASTING; Value: 134; Range: 70-105; Abnormal: Above high normal; Units: MG/DL; Status: F Test: BLOOD UREA NITROGEN; Value: 22; Range: 7-18; Abnormal: Above high normal; Units: MG/DL; Status: F Test: CREATININE FOR GFR; Value: 1.56; Range: 0.70-1.30; Abnormal: Above high normal; Units: MG/DL; Status: F Test: GLOMERULAR FILTRATION RATE; Value: 55.9; Range: >60; Abnormal: Below low normal; Status: F Test: SODIUM LEVEL; Value: 141; Range: 136-145; Units: MEQ/L; Status: F Test: POTASSIUM SERUM; Value: 3.7; Range: 3.5-5.1; Units: MEQ/L; Status: F Test: CHLORIDE LEVEL; Value: 105; Range: 98-107; Units: MEQ/L; Status: F Test: CARBON DIOXIDE LEVEL; Value: 20; Range: 21-32; Abnormal: Below low normal; Units: MEQ/L; Status: F Test: ANION GAP; Value: 16; Range: 8-16; Units: MEQ/L; Status: F Test: CALCIUM LEVEL; Value: 9.4; Range: 8.5-10.1; Units: MG/DL; Status: F Test Note: ; Units are mL/min/1.73 m2 Chronic Kidney Disease Staging per NKF: Stage I & II GFR >=60 Normal to Mildly Decreased Stage III GFR 30-59 Moderately Decreased Stage IV GFR 15-29 Severely Decreased Stage V GFR <15 Very Little GFR Left ESRD GFR <15 on BOILER CONTROL ROOM OPERATOR Lab Order: CBC with Diff; SPEC'M 08/10/16 01:23 Test: WHITE BLOOD COUNT; Value: 11.7; Range: 4.0-10.0; Abnormal: Above high normal; Units: K/mm3; Status: F Test: RED BLOOD COUNT; Value: 5.02; Range: 4.30-6.10; Units: M/mm3; Status: F Test: HEMOGLOBIN; Value: 15.2; Range: 14.0-18.0; Units: g/dl; Status: F Test: HEMATOCRIT; Value: 44.6; Range: 42.0-52.0; Units: %; Status: F Test: MEAN CORPUSCULAR VOLUME; Value: 88.8; Range: 80.0-96.0; Units: fl; Status: F Test: MEAN CORPUSCULAR HEMOGLOBIN; Value: 30.3; Range: 27.0-33.0; Units: pg; Status: F Test: MEAN CORPUSCULAR HGB CONC; Value: 34.1; Range: 32.0-36.5; Units: g/dl; Status: F Test: RED CELL DISTRIBUTION WIDTH; Value: 12.2; Range: 11.5-14.5; Units: %; Status: F Test: PLATELET COUNT, AUTOMATED; Value: 209; Range: 150-450; Units: k/mm3; Status: F Test: NEUTROPHILS %; Value: 88.8; Range: 36.0-66.0; Abnormal: Above high normal; Units: %; Status: F Test: LYMPH %; Value: 6.7; Range: 24.0-44.0; Abnormal: Below low normal; Units: %; Status: F Test: MONO %; Value: 3.4; Range: 0.0-5.0; Units: %; Status: F Test: EOS %; Value: 0.5; Range: 0.0-3.0; Units: %; Status: F Test: BASO %; Value: 0.0; Range: 0.0-1.0; Units: %; Status: F Test: LARGE UNSTAINED CELL %; Value: 0.6; Range: 0.0-4.0; Units: %; Status: F Test: NEUTROPHILS #; Value: 10.4; Range: 1.8-7.7; Abnormal: Above high normal; Units: K/mm3; Status: F Test: LYMPH #; Value: 0.8; Range: 1.5-4.5; Abnormal: Below low normal; Units: K/mm3; Status: F Test: MONO #; Value: 0.4; Range: 0.0-0.8; Units: K/mm3; Status: F Test: EOS #; Value: 0.1; Range: 0.0-0.50; Units: K/mm3; Status: F Test: BASO #; Value: 0.0; Range: 0.0-0.2; Units: K/mm3; Status: F Test: LARGE UNSTAINED CELL #; Value: 0.1; Range: 0.0-0.4; Units: K/mm3; Status: F Lab Order: Lipase; 08/10/16: Test: LIPASE; Value: 144; Range: 73-393; Units: U/L; Status: F Lab Order: Liver Profile; 08/10/16: Test: AST/SGOT; Value: 33; Range: 15-37; Units: U/L; Status: F Test: ALT/SGPT; Value: 34; Range: 12-78; Units: U/L; Status: F Test: ALKALINE PHOSPHATASE; Value: 65; Range: 45-117; Units: U/L; Status: F Test: BILIRUBIN,TOTAL; Value: 1.1; Range: 0.2-1.0; Abnormal: Above high normal; Units: MG/DL; Status: F Test: BILIRUBIN,DIRECT; Value: 0.3; Range: 0.0-0.2; Abnormal: Above high normal; Units: MG/DL; Status: F Test: TOTAL PROTEIN; Value: 7.6; Range: 6.4-8.2; Units: GM/DL; Status: F Test: ALBUMIN; Value: 4.6; Range: 3.2-5.2; Units: GM/DL; Status: F Test: ALBUMIN/GLOBULIN RATIO; Value: 1.53; Range: 1.00-1.93; Status: F Lab Order: Venous Blood Gas (large pea green tube on ice); 08/10/16: Test: VENOUS PH; Value: 7.621; Range: 7.330-7.430; Abnormal: Above upper panic limits; Units: UNITS; Status: F Test: VENOUS PARTIAL PRESSURE CO2; Value: 18.8; Range: 38.0-50.0; Abnormal: Below low normal; Units: mmHg; Status: F Test: VENOUS PARTIAL PRESSURE O2; Value: 45.6; Range: 30.0-50.0; Units: mmHg; Status: F Test: VENOUS TOTAL CO2; Value: 19.5; Range: 24.0-28.0; Abnormal: Below low normal; Units: MEQ/L; Status: F Test: VENOUS HCO3; Value: 18.9; Range: 23.0-27.0; Abnormal: Below low normal; Units: MEQ/L; Status: F Test: VENOUS BASE EXCESS; Value: 0.7; Range: -2.0-2.0; Status: F Test: VENOUS STANDARD HCO3; Value: 24.9; Units: MEQ/L; Status: F Test: VENOUS O2 SATURATION; Value: 90.1; Range: 60.0-80.0; Abnormal: Above high normal; Units: %; Status: F Test Note: ; Verified Repeated results: 7.618 Lab Order: Lactic Acid (Garzon tube on ice); SPEC'M 08/10/16 01:23 Test: LACTIC ACID LEVEL, LACTATE; Value: 2.8; Range: 0.4-2.0; Abnormal: Above upper panic limits; Units: MMOL/L; Status: F Lab Order: BLOOD CULTURES; SPEC'M 08/10/16 02:29 Test: BLOOD CULTURE; Value: No growth after 24 hours . All specimens observed; Status: F Test: BLOOD CULTURE; Value: for 5 days. Results final at that time.; Status: F Test: BLOOD CULTURE; Value: No Growth after 48 hours. All Specimens observed; Status: F Test: BLOOD CULTURE; Value: for 7 days. Results final at that time.; Status: F Lab Order: CREATINE PHOSPHOKINASE; SPEC'M 08/10/16 01:23 Test: CPK CREATINE PHOSPHOKINASE; Value: 745; Range: 39-308; Abnormal: Above high normal; Units: U/L; Status: F Lab Order: -Influenza A&B Rapid Antigen - Nose; SPEC'M 08/10/16 04:24 Test: INFLUENZA A RAPID SCR by ICA; Value: INFLUENZA A RESULTS NEGATIVE; Status: F Test: INFLUENZA A RAPID SCR by ICA; Value: Comments:; Status: F Test: INFLUENZA B RAPID SCR by ICA; Value: INFLUENZA B RESULTS NEGATIVE; Status: F Test Note: ; The Influenza test is a direct rapid immunoassay for the qualitative detection of Influenza viral antigen. Cell culture (Viral Culture) testing should be considered to confirm NEGATIVE results and to assist in detecting other viruses that can provide similar clinical symptoms. Please contact the lab within 24 hours ([phone]) if confirmatory testing is desired. Radiology Order: CT ABD & PELVIS: IV Contrast Only Test: CT ABD & PELVIS: IV Contrast Only REASON FOR EXAMINATION: Abdomen Pain; ; CLINICAL HISTORY: Abdominal pain.; TECHNIQUE: Multiple axial, sagittal and coronal CT images were obtained through the abdomen and pelvi; s after administration of intravenous contrast material.; COMMENTS:; Mild diffuse thickening of the wall of the colon.; Fluid filled bowels.; The liver is of uniform attenuation without mass or defect. There is no intra or extrahepatic biliary; ductal dilatation. The spleen is normal. The gallbladder is within normal limits. The pancreas is of; normal contour and attenuation characteristics. There is no evidence of adrenal mass.; Both kidneys demonstrate prompt and equal nephrograms. The kidneys are normal in size, shape and conf; iguration. There is no evidence of renal or ureteral mass. No renal or ureteral calculi are identifie; d. There is no hydroureter or hydronephrosis.; No evidence for appendicitis. There is no bowel wall thickening. No evidence for small or large almaz; l obstruction. There is no evidence of abdominal ascites or lymphadenopathy.; There is no evidence of intrinsic or extrinsic bladder mass. There is no pelvic ascites or lymphadeno; destinee.; Images of the lung bases show no evidence of pleural or parenchymal mass. There are no pleural effusi; ons.; The bony structures are free of lytic or blastic lesions.; IMPRESSION:; Enterocolitis.; No perforation or abscess formation.; Thank you for your kind referral of this patient.; ; Outcome: 07:03 Discharge ordered by Provider. mm11 07:22 Discharge Assessment: Patient awake, alert and oriented x 3. No cognitive and/or dls functional deficits noted. Patient verbalized understanding of disposition instructions. patient administered narcotics - no. The following High Risk Discharge criteria are identified: None. Discharged to home ambulatory, with significant other. Condition: stable Condition: improved. Discharge instructions given to patient, Instructed on discharge instructions, follow up and referral plans. medication usage, Demonstrated understanding of instructions, medications, Pt was receptive of discharge instructions/ teaching. No special radiology studies were completed. Property sent home with patient. 07:23 Patient left the ED. dls Signatures: Dispatcher [employer] EDMS Anila Valle, RN RN dls Guerita Pulido, Reg Reg gb Kvng, Esteban, WEARING APPAREL SHAKER WEARING APPAREL SHAKER kb5 John Branham, DO DO mm11 Amarilis Dorantes, RN RN [email or web address] Makayla Tinsley Julia,RN RN [id number] Livier Dugan,RN RN jp6 Chart Complete MTDD
--- NOTE | 2016-08-12 08:24 | EDDOCDS ---
Physician Documentation [facility] Name: Darwin Mei Age: 31 yrs Sex: Male : 1985 Arrival Date: 08/10/2016 Time: 01:09 Bed 12 Private MD: Disposition: 08/10/16 07:03 Discharged to Home/Self Care. Impression: Noninfective gastroenteritis and colitis, unspecified. - Condition is Stable. - Discharge Instructions: Food Choices to Help Relieve Diarrhea, Adult, Dehydration, Adult, Viral Gastroenteritis, Viral Gastroenteritis, [id number], Dehydration, Adult, [id number]. - Prescriptions for Zofran 4 mg Oral Tablet - take 1 tablet by ORAL route 4 times per day As needed; 10 tablet. - Medication Reconciliation, Local Pharmacy Hours form. - Follow up: Andrés Gray [facility]; When: 2 - 3 days; Reason: Continuance of care. - Problem is an acute exacerbation. - Symptoms have improved. Historical: - Allergies: No known drug Allergies; - Home Meds: 1. none - PMHx: none; - Social history: Smoking status: Patient states was never smoker of tobacco. Patient/guardian denies using alcohol, street drugs, No barriers to communication noted, The patient speaks fluent [place]. - Family history: Not pertinent. - : The pt / caregiver states he / she is not on anticoagulants. Home medication list is obtained from the patient. - Exposure Risk Screening:: None identified. Vital Signs: 08/10 01:18 BP 122 / 67; Pulse 104; Resp 18; Temp 97.5(O); Pulse Ox 100% on R/A; Weight 86.18 kg / jp6 189.99 lbs; Height 5 ft. 9 in. (175.26 cm); Pain 9/10; 02:33 Pulse 82 MON; Pulse Ox 94% ; jp6 02:33 BP 126 / 60; Pulse 82; Resp 16; Pulse Ox 97% on R/A; Pain 5/10; jp6 03:36 BP 113 / 58 (auto/); jp6 03:36 Pulse 82 MON; Pulse Ox 94% ; jp6 04:25 Temp 100.8(O); jp6 04:36 BP 121 / 66 (auto/); jp6 04:36 Pulse 84 MON; Pulse Ox 98% ; jp6 04:44 Pulse 78 MON; Pulse Ox 98% ; jp6 05:26 Pulse 80 MON; Pulse Ox 94% ; jp6 05:26 Temp 99.6(O); jp6 05:36 BP 114 / 54 (auto/); jp6 05:36 Pulse 78 MON; Pulse Ox 93% ; jp6 07:21 BP 108 / 52; Pulse 78; Resp 16; Temp 97.8; Pulse Ox 99% on R/A; Pain 2/10; dls 01:18 Body Mass Index 28.06 (86.18 kg, 175.26 cm) jp6 MDM: 01:26 NS 0.9% 1000 ml IV at bolus once ordered. js15 02:15 Ondansetron 4 mg IVP once ordered. mm11 02:15 -Blood Culture (Adults Only), peripheral from different site, or from device/port/PICC mm11 etc. if present ordered. 02:15 IV Saline Lock ordered. mm11 02:15 Undress patient appropriately for examination ordered. mm11 02:16 -Blood Culture Ordered. EDMS 02:16 Amylase Ordered. EDMS 02:16 Basic Metabolic Profile Ordered. EDMS 02:16 CBC with Diff Ordered. EDMS 02:16 Lipase Ordered. EDMS 02:16 Liver Profile Ordered. EDMS 02:17 NOTHING BY MOUTH+DIET ordered. EDMS 02:17 Venous Blood Gas (large pea green tube on ice) Ordered. EDMS 02:17 Lactic Acid (Garzon tube on ice) Ordered. EDMS 02:23 -Blood Culture (Adults Only), peripheral from different site, or from device/port/PICC kb5 etc. if present complete. 02:27 BLOOD CULTURES Ordered. EDMS 02:55 CREATINE PHOSPHOKINASE Ordered. EDMS 03:11 Financial registration complete. [facility] 03:16 Basic Metabolic Profile Reviewed. mm11 03:16 CBC with Diff Reviewed. mm11 03:16 Liver Profile Reviewed. mm11 03:16 Venous Blood Gas (large pea green tube on ice) Reviewed. mm11 03:16 Lactic Acid (Garzon tube on ice) Reviewed. mm11 03:16 CREATINE PHOSPHOKINASE Reviewed. mm11 03:16 Amylase Reviewed. mm11 03:16 Lipase Reviewed. mm11 03:17 NS 0.9% (Sepsis- hypotension or lactate >4mmol/L, 30ml/kg) 2000 ml IV at bolus once; mm11 Give in 500mL aliquots, assess for rales after each, inform provider ordered. 03:17 CT ABD & PELVIS: IV Contrast Only Ordered. EDMS 04:17 [facility] Payment Agreement was scanned into [employer] and attached to record. [facility] 04:18 Acetaminophen Tablet 650 mg PO once ordered. mm11 04:19 -Influenza A&B Rapid Antigen - Nose Ordered. EDMS 06:18 -Influenza A&B Rapid Antigen - Nose Reviewed. mm11 06:18 CT ABD & PELVIS: IV Contrast Only Reviewed. mm11 15:00 T-Sheet-- Draft Copy was scanned into [employer] and attached to record. gb 15:00 Radiology Report was scanned into [employer] and attached to record. gb Administered Medications: 01:27 Drug: NS 0.9% 1000 ml [sodium chloride 0.9 % intravenous solution] Route: IV; Rate: js15 bolus; Site: left antecubital; 03:25 Follow up: IV Status: Completed infusion; IV Intake: 1000ml jp6 02:30 Drug: Ondansetron 4 mg [ondansetron HCl 2 mg/mL intravenous solution (2 mL)] Route: jp6 IVP; Site: left antecubital; 03:26 Follow up: Response: Nausea is resolved jp6 03:23 Drug: NS 0.9% (Sepsis- hypotension or lactate >4mmol/L, 30ml/kg) 2000 ml [sodium jp6 chloride 0.9 % intravenous solution] Route: IV; Rate: bolus; Site: left antecubital; 05:26 Follow up: IV Status: Completed infusion; IV Intake: 2000ml jp6 04:25 Drug: Acetaminophen 650 mg [acetaminophen 325 mg tablet (2 tabs)] Route: PO; jp6 05:26 Follow up: Response: Temperature is decreased jp6 Signatures: Dispatcher [employer] EDMS Anila Valle, RN RN dls Guerita Pulido, Reg Reg gb Esteban Calderon, NURSING HOME ASSISTANT NURSING HOME ASSISTANT kb5 John Branham, DO mm11 Makayla Tinsley [facility] Betty RendonRN RN js15 Livier Dugan,RN RN jp6 The chart was reviewed and I authenticate all verbal orders and agree with the evaluation and treatment provided.Corrections: (The following items were deleted from the chart) 02:55 02:48 CREATINE PHOSPHOKINASE+LAB ordered. EDMS EDMS Attachments: 04:17 [facility] Payment Agreement [facility] 15:00 T-Sheet-- Draft Copy gb Chart Complete MTDD
== END 2016-08-10 07:23 | disposition home or self-care (01) ==
LOC: M ED 01:09 → EDBD 01:09 → M ED 07:23
DX: K52.9 Noninfective gastroenteritis and colitis, unspecified (principal)
CPT/HCPCS: 36600; 74177; 80048; 80076; 82150; 82550; 82803; 83605; 83690; 85025; 87040; 87804; 96361; 96365; 96366; 96375; 99284; J2405; Q9967